=== PATIENT | male | born 1960 | race Two or more races ===

== ENCOUNTER → 2016-05-16 | Outpatient (CLI) | payer BC ==
[~2016-05-16] MED LIST: TRAM50TA2 PO
[2016-05-16 14:46] LABS: Basophils # (auto) 0 uL; Basophils % (auto) 0.4 % (0.0-2.0); Eosinophils # (auto) 0.3 uL; Eosinophils % (auto) 4.4 % (0.0-7.0); Hematocrit 46.1 % (41.0-53.0); Hemoglobin 16.1 g/dL (13.5-17.5); Lymphocytes # (auto) 1.8 uL; Lymphocytes % (auto) 25.5 % (10.0-50.0); Mean Corpuscular Hemoglobin 30.9 pg (28.0-32.0); Mean Corpuscular Hgb Conc. 34.9 g/dL (32.0-36.0); Mean Corpuscular Volume 88.6 fL (80.0-100.0); Monocytes # (auto) 0.6 uL; Monocytes % (auto) 8.9 % (0.0-12.0); Neutrophils # (auto) 4.2 uL; Neutrophils % (auto) 60.8 % (37.0-80.0); Platelet Count (auto) 208 10^3/uL (140-450); Red Cell Distribution Width 13.2 % (11.6-16.0); White Blood Cell 6.9 10^3/uL (4.4-10.8)
[2016-05-16 15:01] LABS: INR 0.98 (0.9-1.15); Partial Thromboplastin Time 27.6 sec (22.64-33.71); Prothrombin Time 10.1 sec (9.37-12.3)
[2016-05-16 15:04] LABS: Albumin 3.8 g/dL (3.4-5.0); Calcium 8.1 mg/dL (8.5-10.1); Potassium 3.7 mmol/L (3.5-5.1)
[2016-05-16 15:06] LABS: Bilirubin, Total 0.6 mg/dL (0.2-1.0)
[2016-05-16 15:11] LABS: Urine Bilirubin Negative (Negative); Urine Blood Negative /uL (Negative); Urine Color Yellow (Yellow); Urine Glucose Normal (Normal); Urine Ketone Negative (Negative); Urine Nitrite Negative (Negative); Urine RBC <1 /hpf (0 - 3); Urine Squamous Epithelial Cell FEW /hpf (<5); Urine Urobilinogen Normal (Negative); Urine pH 6.5 (5.0-8.0)
[2016-05-16 18:41] LABS: BUN/Creatinine Ratio 20.2
[2016-05-16 18:42] LABS: Total Protein 7.4 g/dL (6.4-8.2)
== END | disposition home or self-care (01) ==
LOC: LAB 14:11
PROVIDERS: ATTEND Podiatrist Foot & Ankle Surgery
DX: Z01.818 Encounter for other preprocedural examination (principal); R79.1 Abnormal coagulation profile
CPT/HCPCS: 36415; 80053; 81001; 85025; 85610; 85730

== ENCOUNTER 2016-05-21 08:53 | Day surgery (SDC) | payer BC ==
[~2016-05-21] VITALS: Ht 170.2 cm; Wt 86.2 kg
[2016-05-21] MEDS ORDERED: ceFAZolin 1GM/50ML D5W 50 ML IV ONE (09:12)
[2016-05-21] MEDS ORDERED: methylPREDNISolone ACETATE 80 MG/ML VL ONE (09:41)
[2016-05-21] MEDS ORDERED: PROPOFOL 10 MG/ML 20 ML IV ONE (09:50)
[2016-05-21] MEDS ORDERED: ONDANSETRON HCL 4 MG/2 ML VIAL ONE (09:50)
[2016-05-21] MEDS ORDERED: MIDAZOLAM HCL 1MG/1ML-2 ML VIAL ONE (09:50)
[2016-05-21] MEDS ORDERED: fentaNYL CITRATE 100 MCG/2 ML VL ONE (09:50)
[2016-05-21] MEDS: BUPIVACAINE 0.75% INJ 10ML MPV SDV IJ ONE ×2 (10:15→10:42)
[2016-05-21] MEDS ORDERED: SILVER SULFADIAZINE 1 % TOPICAL CREAM 50GM TOP ONE (10:31)
[2016-05-21] MEDS ORDERED: KETOROLAC TROMETH 30 MG/ML 1ML VIAL IV ONE (11:00)
[2016-05-21] MEDS ORDERED: PROMETHAZINE HCL 25 MG/ML 1ML IM ONE (11:00)
[2016-05-21] MEDS ORDERED: HYDROmorphone HCL 2 MG/ML VL IV PRN (11:00)
[2016-05-21 11:38] VITALS: BP 144/85
== END 2016-05-21 11:43 | disposition home or self-care (01) ==
LOC: SUR 08:53
PROVIDERS: ATTEND Podiatrist Foot & Ankle Surgery
DX: D36.7 Benign neoplasm of other specified sites (principal); B07.8 Other viral warts; I10 Essential (primary) hypertension
CPT/HCPCS: 11422; 28041; 88305; J0690; J2250; J2405; J2704; J3010; J3490; Q4139